=== PATIENT | female | born 1945 | race Caucasian/White ===

== ENCOUNTER 2019-12-07 10:02 | Observation (INO) | payer MEDICARE, OTHER ==
--- NOTE | 2019-11-27 12:16 | HP ---
HISTORY AND PHYSICAL: DATE OF ADMISSION/SURGERY: 12/07/19 DATE OF OFFICE VISIT: 11/20/19 SURGEON: Carin Davis MD.* (DICTATED BY JUNIOR JC) PROCEDURE: Right total knee arthroplasty. CHIEF COMPLAINT: Right knee pain. HISTORY OF PRESENT ILLNESS: Ms. Ag is a 74-year-old female with end-stage osteoarthritis of the right knee. She has failed conservative treatment and elected to proceed with a right total knee arthroplasty. PAST MEDICAL HISTORY: Hypothyroidism, hypertension, high cholesterol and breast cancer. PAST SURGICAL HISTORY: Cyst removal from her ovary, , cholecystectomy , hysterectomy and lower extremity vein surgery. CURRENT MEDICATIONS: 1. L-thyroxine 150 mcg daily. 2. Amlodipine/valsartan 10/160 mg daily. 3. Atorvastatin calcium 10 mg daily. 4. Duloxetine 30 mg a day. 5. Furosemide 20 mg daily as needed. ALLERGIES: To MINOCYCLINE. FAMILY HISTORY: Stroke and coronary artery disease. SOCIAL HISTORY: She is a 74-year-old female. She lives with her . She does not smoke or use drugs. REVIEW OF SYSTEMS: A complete 14-point review of systems was reviewed with the patient. It was positive for hypothyroidism. She denies history of DVT, PE, hepatitis, HIV or anesthesia problems. PHYSICAL EXAMINATION GENERAL: She is well developed, well nourished, in no acute distress. VITAL SIGNS: She stands 65 inches tall, weighs 238 pounds. Her blood pressure is 156/86, her heart rate is 64. HEENT: Normocephalic, atraumatic. NECK: Supple. No palpable lymph nodes. PULMONARY: The lungs are clear to auscultation bilaterally. CARDIO: Regular rate and rhythm. Strong S1, S2. ABDOMEN: Soft, nontender, nondistended. NEUROLOGICAL: She is alert and oriented x3. MUSCULOSKELETAL: Right lower extremity: The skin is intact. There are no open wounds or abrasions. She has a moderate effusion of the right knee joint. She has some tenderness along the medial and lateral joint line. Range of motion is 10 to 110 degrees of flexion with significant patellofemoral crepitus. She is able to dorsiflex and plantarflex and has a 2+ dorsalis pedis pulse and intact sensation. ASSESSMENT AND PLAN: Ms. Ag is a 74-year-old female with end-stage osteoarthritis of the right knee. She has failed conservative treatment and elected to proceed with a right total knee arthroplasty. The surgery is scheduled for 12/07/[address] Davis discussed the risks and benefits of the surgery at today's visit and all of her questions were answered. She will follow up with Dr. Davis 2 weeks after the surgery. JUNIOR JC [id number]/[facility] #: [id number] MTDRoxy
[~2019-12-07 10:02] MED LIST: Acetaminophen TAB* 325 MG PO ONE; Buffered Lidocaine 1% SYRIN* 1 ML/SYRINGE INTRADERM ONE; Bupivacaine 0.5% SDV PF* 30ML VIAL ONE; Dexamethasone TAB* 4 MG PO ONE; Famotidine IV* 10 MG/ML 2 ML (20 mg) IV ONE; Gabapentin CAP(*) 300 MG PO ONE; Lactated Ringers 1000 ML Bag* 1,000 ML IV SCH; Ondansetron ODT TAB* 4 MG PO ONE; Tranexamic Acid 1,000 MG in NS 0.9% 50 ML IV ONE; celeCOXIB CAP* 200 MG PO ONE
[2019-12-07] MEDS ORDERED: fentaNYL* 50 MCG/ML 2 ML VIAL (100 MCG VIAL) ONE ×2 (10:04→14:33)
[2019-12-07] MEDS ORDERED: Acetaminophen TAB* 325 MG ONE (10:53)
[2019-12-07] MEDS ORDERED: Gabapentin CAP(*) 300 MG ONE (10:53)
[2019-12-07] MEDS ORDERED: ceFAZolin 2 GM in NS PREMIX(*) 2 GM/100 ML BAG IVPB ONE (10:54)
[2019-12-07] MEDS ORDERED: celeCOXIB CAP* 200 MG ONE (10:54)
[2019-12-07] MEDS ORDERED: Naloxone* 0.4 MG/ML 1 ML VIAL IV PRN (11:40)
[2019-12-07] MEDS ORDERED: Bupivacaine 0.5% SDV PF* 30ML VIAL ONE (11:47)
[2019-12-07] MEDS ORDERED: Midazolam* 1 MG/ML 2 ML VIAL (2 MG) ONE ×2 (12:37→14:29)
[2019-12-07] MEDS ORDERED: Phenylephrine 40 MCG/ML SYRINGE ONE (12:44)
[2019-12-07] MEDS ORDERED: Ondansetron INJ* 2 MG/ML VIAL ONE (12:44)
[2019-12-07] MEDS ORDERED: EPHEDrine (Pressors)* 50 MG/ML VIAL ONE (12:44)
[2019-12-07] MEDS ORDERED: Dexamethasone IV* 4 MG/ML 1 ML (4 MG) ONE (12:44)
[2019-12-07] MEDS ORDERED: Propofol* 500 MG/50 ML BTL ONE (12:44)
[2019-12-07] MEDS ORDERED: Propofol* 10 MG/ML 20 ML BTL ONE ×2 (14:13→14:31)
[2019-12-07] MEDS ORDERED: oxyCODONE TAB* 5 MG TAB PO PRN ×2 (15:27)
[2019-12-07] MEDS ORDERED: HYDROmorphone INJ1* 1 MG/ML SYRINGE IV PRN (15:27)
[2019-12-07] MEDS ORDERED: diPHENhydraMINE PO* 25 MG PO PRN (15:27)
[2019-12-07] MEDS ORDERED: oxyCODONE/Acetamin 5/325 MG* TAB PO PRN (15:27)
[2019-12-07] MEDS ORDERED: Cyclobenzaprine TAB* 10 MG PO PRN (15:27)
[2019-12-07] MEDS ORDERED: Ondansetron ODT TAB* 4 MG PO PRN (15:27)
[2019-12-07] MEDS ORDERED: Acetaminophen TAB* 325 MG PO PRN (15:27)
[2019-12-07] MEDS ORDERED: diPHENhydraMINE IV* 50 MG/ML 1 ml VIAL (BENADRYL) IV PRN (15:27)
[2019-12-07] MEDS ORDERED: Magnesium Hydroxide LIQ* 30 ML UDC PO PRN (15:27)
[2019-12-07] MEDS ORDERED: Ondansetron INJ* 2 MG/ML VIAL IV PRN (15:27)
[2019-12-07] MEDS ORDERED: HYDROmorphone INJ1* 1 MG/ML SYRINGE ONE (15:33)
[2019-12-07] MEDS ORDERED: oxyCODONE TAB* 5 MG TAB ONE (16:07)
--- NOTE | 2019-12-07 16:20 | CONSULT ---
Subjective Date of Service: 12/07/19 Interval History: 74 y/o [place] [facility] [place] with significant past medical history of HTN, Hypothyroidism, and hyperlipidemia. Underwent Right TKA, uncomplicated operative course. We were asked for perioperative medical comanagement of her medical conditions as listed. Family History: Unchanged from Admission - CVA and CAD Social History: Unchanged from Admission - no Tobacco, No alcohol lives with her Past Medical History: Unchanged from Admission - 1. Hypertension; 2.Hypothyroidsm; 3. hyperlipidemia; 4. Breast Cancer Review of Systems - Measurements Intake and Output: Intake and Output Last 24 Hours 12/05/19 12/06/19 12/07/19 12/08/19 06:59 06:59 06:59 06:59 Weight 241 lb - Review of Systems General Comments: Right knee post op pain. no chest pain no Shortness of breath Objective Active Medications: Acetaminophen (Tylenol Tab*) 975 mg PO ONCE ONE Stop: 12/07/19 06:01 Last Admin: 12/07/19 10:57 Dose: 975 mg Acetaminophen (Tylenol Tab*) 975 mg PO ONCE ONE Stop: 12/07/19 06:01 Acetaminophen (Tylenol Tab*) 650 mg PO Q8HR PRN PRN Reason: MILD PAIN or TEMP > 100.4 Apixaban (Eliquis*) 2.5 mg PO BID ERIK Bisacodyl (Dulcolax Supp*) 10 mg GA DAILY PRN PRN Reason: CONSTIPATION Celecoxib (Celebrex Cap*) 200 mg PO ONCE ONE Stop: 12/07/19 06:01 Last Admin: 12/07/19 10:58 Dose: 200 mg Cyclobenzaprine HCl (Flexeril Tab*) 10 mg PO Q6H PRN PRN Reason: SPASMS Dexamethasone (Decadron Tab*) 8 mg PO ONCE ONE Stop: 12/07/19 06:01 Diphenhydramine HCl (Benadryl Iv*) 25 mg IV Q6H PRN PRN Reason: PRURITIS Diphenhydramine HCl (Benadryl Po*) 25 mg PO Q6H PRN PRN Reason: PRURITIS Docusate Sodium (Colace Cap*) 100 mg PO BID ERIK Famotidine (Pepcid Iv*) 20 mg IV ONCE ONE Stop: 12/07/19 06:01 Gabapentin (Neurontin Cap(*)) 300 mg PO ONCE ONE Stop: 12/07/19 06:01 Last Admin: 12/07/19 10:58 Dose: 300 mg Hydromorphone HCl (Dilaudid Inj1s*) 0.5 mg IV Q10M PRN PRN Reason: PAIN - SEVERE Last Admin: 12/07/19 15:33 Dose: 0.5 mg Lactated Ringer's (Lactated Ringers 1000 Ml Bag*) 1,000 mls @ 125 mls/hr IV PER RATE [facility] Last Admin: 12/07/19 11:10 Dose: 125 mls/hr Lactated Ringer's (Lactated Ringers 1000 Ml Bag*) 1,000 mls @ 125 mls/hr IV PER RATE [facility] Cefazolin Sodium 1 gm/ Sodium (Chloride) 50 mls @ 200 mls/hr IVPB Q8H [facility] Stop: 12/08/19 08:14 Lactated Ringer's (Lactated Ringers 1000 Ml Bag*) 1,000 mls @ 100 mls/hr IV PER RATE [facility] Lactulose (Lactulose*) 30 ml PO BID PRN PRN Reason: CONSTIPATION Lidocaine/Sodium Bicarbonate (Buffered Lidocaine 1% Syrin*) 0.2 ml INTRADERM ONCE ONE Stop: 12/06/19 10:28 Lidocaine/Sodium Bicarbonate (Buffered Lidocaine 1% Syrin*) 0.2 ml INTRADERM ONCE ONE Stop: 12/06/19 11:07 Magnesium Hydroxide (Milk Of Magnesia Liq*) 30 ml PO BID [facility] Magnesium Hydroxide (Milk Of Magnesia Liq*) 30 ml PO Q6H PRN PRN Reason: CONSTIPATION Multivitamins (Theragran Tab*) 1 tab PO DAILY [facility] Naloxone HCl (Narcan*) 0.08 mg IV Q2M PRN PRN Reason: severe induced resp depression Ondansetron HCl (Zofran Odt Tab*) 4 mg PO ONCE ONE Stop: 12/07/19 06:01 Ondansetron HCl (Zofran Inj*) 4 mg IV Q6H PRN PRN Reason: NAUSEA Ondansetron HCl (Zofran Odt Tab*) 4 mg PO Q6H PRN PRN Reason: NAUSEA Oxycodone HCl (Roxycodone Tab*) 10 mg PO ONCE PRN PRN Reason: SEVERE PAIN Last Admin: 12/07/19 16:08 Dose: 10 mg Oxycodone HCl (Roxycodone Tab*) 5 mg PO Q4H PRN PRN Reason: Pain - Breakthrough Oxycodone/Acetaminophen (Percocet 5/325 Tab*) 1 tab PO Q4H PRN PRN Reason: PAIN - MODERATE Oxycodone/Acetaminophen (Percocet 5/325 Tab*) 2 tab PO Q4H PRN PRN Reason: PAIN - SEVERE Vital Signs - 8 hr 12/07/19 12/07/19 11:05 15:33 Temperature 97.2 F Pulse Rate 76 Respiratory 20 14 Rate Blood Pressure 163/72 (mmHg) O2 Sat by Pulse 96 Oximetry Oxygen Devices in Use Now: None Appearance: awake, alert pleasant no acute distress Eyes: No Scleral Icterus, PERRLA, - - EOMI Ears/Nose/Mouth/Throat: NL Teeth, Lips, Gums, Mucous Membranes Moist Neck: NL Appearance and Movements; NL JVP, Trachea Midline Respiratory: Symmetrical Chest Expansion and Respiratory Effort, Clear to Auscultation Cardiovascular: NL Sounds; No Murmurs; No JVD, RRR Abdominal: NL Sounds; No Tenderness; No Distention Extremities: - - Right Lower extremety immobilized Neurological: Alert and Oriented x 3 Assessment/Plan - Billing Plan By Medical Problem: 74 y/o female post Right Total knee arthroplasty with known history for HTN, Hypothyroidism and hyperlipidemia being seen for comanagement for her medical conditions 1. Right knee osteoarthritits s/p Right total knee arthroplasty - Activity, diet and pain control as per ortho - PT/Ot as per ortho 2. Hypertension - start amlodipine 10 mg today with holding parameter - Hold valsartan for tonight. may resume in am or before she goes home 3. Hyperlipidemia - Resume lipitor in am 4. Hypothyroidism - Resume levothyroxine 150 mcg in am 5. DVT prophylaxis - Eliquis as per ortho Diet: - Cardiac Code Status: - Full code
[2019-12-07] MEDS: Lactated Ringers 1000 ML Bag* 1,000 ML IV SCH (17:09)
[2019-12-07] MEDS ORDERED: Furosemide TAB* 20 MG PO PRN (18:10)
[2019-12-07] MEDS ORDERED: traMADol TAB* 50 MG ONE (18:27)
[2019-12-07] MEDS: traMADol TAB* 50 MG PO PRN (18:29)
--- NOTE | 2019-12-07 20:41 | OP ---
Operative Report - Blank - Operative Report Date of Operation: 12/07/19 Note: JANETH ENCISO 1945 Date of Surgery: 12/07/19 Carin Davis MD Temple Marker: Joey PACHECO did help throughout the procedure with preparation of the knee, wound retraction, manipulation of the knee, and wound closure. Anesthesiologist: Dr. Paige Anesthesia Type: Spinal Preoperative Diagnosis: Right severe degenerative osteoarthritis of the knee Postoperative Diagnosis: As above Procedure Performed: Right Total Knee Arthroplasty Tourniquet time: 62 minutes Complications: None Specimen: Bone and cartilage from the right knee joint sent to pathology. Hardware Used: Cemented P[employer]hew total knee hardware was used - For the femur a size 6 right legion posterior stabilized femoral component, for the tibia a size 5 right jenny II tibial baseplate, for the insert a size 9mm 5-6 posterior stabilized articular polyethylene insert, and for the patella a size 32 3-peg all poly patella. The Navio robotic navigation system was used at the patient's request. Brief History/Indication: JANETH ENCISO was known in clinic and had a history of severe right knee pain and swelling. She failed conservative treatment with anti-inflammatories, pain pills, intra-articular injections and physical therapy. She elected to undergo right total knee arthroplasty due to continued pain and decreased quality of life. Radiographs showed severe end stage osteoarthritis of the knee with bone on bone contact. Informed consent was obtained from the patient. She understood the risks of surgery included but were not limited to: bleeding, infection, damage to nearby structures, intraoperative fracture, nerve palsy, failure of the hardware, early loosening, knee stiffness or loss of motion, anesthesia complications, stroke, heart attack , blood clot and . The additional Navio pin site risks of infection and fracture were discussed. She wished to proceed. Intra-Operative Findings: Intraoperatively the patient was noted to have severe loss of cartilage in all 3 compartments of the knee. Description of the Procedure: JANETH ENCISO was identified in the preanesthesia unit. Her right knee was marked as the correct operative side. Informed consent was signed and placed in the chart. The patient was taken to the operating room and placed under anesthesia without complication. A walters catheter was placed. A tourniquet was placed on the right thigh. The right lower extremity was prepped and draped in the usual sterile fashion. Preoperative time-out was made to correctly identify the patient, side and site. Appropriate intraoperative antibiotics were given within one hour of incision. Tourniquet was inflated. A midline incision was made and carried sharply down to the extensor mechanism. A new 10 blade was used to make a standard medial parapatellar arthrotomy. The patella was subluxed laterally. Electrocautery was used to dissect soft tissue off the superomedial tibia to the midsagittal plane. The knee was flexed up. The anterior horn of the lateral meniscus and the ACL/PCO were sharply incised. A checkpoint screw was placed on the femur and tibia. Two pins were placed in the femur and tibia, the arrays were connected to these. The navio system was used to map the patient's anatomy. The navio system was then used to determine the hardware sizes and cutting angles. The navio robotic soila was used to make the distal femoral cut. The distal femur was sized to a size 6. The size 6 multi-cutting jig was pinned on the distal femur. The oscillating saw was used to make the appropriate 4 chamfer cuts. Next the PCL was completely released. The extramedullary tibial cutting guide was pinned on the proximal tibia using the Navio angle guide. The oscillating saw was used to make the proximal tibial cut perpendicular to the mechanical axis of the tibia. The bone was carefully removed. The knee was brought out into full extension. The spacer block was placed and had excellent fit with the knee in full extension. The medial and lateral ligaments were well balanced. The flexion and extension gaps were well balanced. The knee was flexed up. Lamina dental laboratory technician apprentice was placed both medially and laterally. Any remaining meniscus was removed with electrocautery. Curved osteotome was used to remove any posterior osteophytes. The tibial tray and drop ld were placed and confirmed a satisfactory tibial cut. The size 6 right femoral trial was impacted onto the distal femur. This trial had excellent fit and stability. The box for the posterior stabilized implant was prepared using a box cut osteotome and a reamer. Next a tibial tray trial and 9 mm insert trial was placed. The knee was taken through a range of motion and had full extension to 130 degrees of flexion. Patellofemoral tracking was satisfactory. The final Navio measurements were collected. All 4 pins and 2 screws were carefully removed. The patella was inverted and sized to a size 32. Three peg holes were drilled through the size 32 drill guide. The trial patella was placed and the knee was taken through a range of motion. There was satisfactory patellofemoral tracking. All trials were removed. The tibia was subluxed anteriorly and sized to a size 5. The proximal tibial was prepared with a size 5 keel punch. All bony cut surfaces were irrigated with sterile saline and dried. Final implants were cemented into place starting with the tibia, followed by the femur, and last the patella. A 9 mm insert trial was placed and the knee was brought into full extension. Tourniquet was turned down and the knee was copiously irrigated with sterile saline. Electrocautery was used to obtain meticulous hemostasis. Once the cement had fully cured, the insert trial was removed. Any excess cement was removed from around the hardware and capsule. Final insert chosen was a 9 mm posterior stabilized Jenny II articular insert size 5-6. Stability of the insert was checked and noted to be stable. The extensor mechanism was closed using number 1 vicryls. The rest of the incision was closed in a layered fashion using 0 and 2-0 vicryls. The skin was closed using 3-0 nylon suture. Sterile xeroform, 4x4s and webril were used to cover the incision. Dayron wrap and cold pack were used to cover the dressings. The patients anesthesia was reversed without difficulty. She was taken to the PACU in stable condition. Intended weight-bearing will be as tolerated.
[2019-12-07] MEDS: Docusate CAP* 100 MG PO SCH (21:00)
[2019-12-07] MEDS: amLODIPine TAB* 5 MG PO SCH (21:01)
[2019-12-07] MEDS: oxyCODONE/Acetamin 5/325 MG* TAB PO PRN (21:02)
[2019-12-07] MEDS: Magnesium Hydroxide LIQ* 30 ML UDC PO SCH (21:03)
[2019-12-07] MEDS: ceFAZolin 1 GM ADVAN(*) 1 GM in NS 0.9% 50 ML* 50 ML IVPB SCH (21:03)
[2019-12-08] MEDS: Lactated Ringers 1000 ML Bag* 1,000 ML IV SCH (03:06)
[2019-12-08] MEDS: oxyCODONE/Acetamin 5/325 MG* TAB PO PRN ×3 (03:07→14:29)
[2019-12-08] MEDS: ceFAZolin 1 GM ADVAN(*) 1 GM in NS 0.9% 50 ML* 50 ML IVPB SCH ×2 (05:04→12:50)
[2019-12-08 05:32] LABS: Hematocrit 36 % (35-47); Hemoglobin 11.9 g/dL (12.0-16.0); Mean Platelet Volume 7.9 fL (7.4-10.4); Platelet Count 284 10^3/uL (150-450)
[2019-12-08 05:45] LABS: BUN/Creatinine Ratio 27.2 (8-20); Calcium 8.6 mg/dL (8.6-10.3); EGFR African American 83.4 (>60); EGFR Non-African American 68.9 (>60); Potassium 4.4 mmol/L (3.5-5.0)
[2019-12-08] MEDS ORDERED: Levothyroxine TAB* 150 MCG TAB PO SCH (06:00)
[2019-12-08] MEDS: traMADol TAB* 50 MG PO PRN (06:20)
[2019-12-08] MEDS ORDERED: DULoxetine DR CAP* 30 MG CAP.DR PO SCH (09:00)
[2019-12-08] MEDS ORDERED: Vitamin THERAPEUTIC TAB PO SCH (09:00)
[2019-12-08] MEDS ORDERED: Apixaban* 2.5 MG TAB PO SCH (09:00)
[2019-12-08] MEDS ORDERED: Atorvastatin* 10 MG TAB PO SCH (09:00)
[2019-12-08] MEDS: Docusate CAP* 100 MG PO SCH (09:26)
[2019-12-08] MEDS: amLODIPine TAB* 5 MG PO SCH (09:27)
[2019-12-08] MEDS: Magnesium Hydroxide LIQ* 30 ML UDC PO SCH (09:30)
[2019-12-08 12:41] VITALS: BP 130/52
--- NOTE | 2019-12-08 13:24 | PN ---
Progress Note - Progress Note Date of Service: 12/08/19 SOAP: Subjective: [Pt was seen this morning sitting up in bed. States that she is doing very well. She denies any numbness, tingling, nausea or vomiting. ] Objective: [General: Pt is alert and oriented x3, NAD. MSK, RLE: Dressing is c/d/i. + df/pf. NVI distally, calf is soft and non tender. 2+ DP pulse ] Vital Signs Temp 97.9 F 12/08/19 12:40 Pulse 73 12/08/19 12:40 Resp 16 12/08/19 12:40 BP 130/52 12/08/19 12:40 Pulse Ox 96 12/08/19 12:40 Intake & Output 12/07/19 12/08/19 12/08/19 18:59 06:59 18:59 Intake Total 3000 1804 1162 Output Total 650 1000 250 Balance 2350 804 912 Weight 241 lb Intake: IV Fluids 3000 950 1056 LR 3000 950 1056 IVPB 54 106 ABX - CEFAZOLIN 54 106 Oral 800 Output: Urine 250 Allred 650 1000 Assessment: [POD 1 RTKA ] Plan: [PT Continue with pain medication Eliquis 2.5 bid x 30 days Possible DC home today. ]
--- NOTE | 2019-12-08 13:26 | DS ---
Orthopedic Discharge Summary - Discharge Summary Date of Admission:12/07/19 Date of Discharge: 12/08/2019 Date of Surgery: 12/07/2019 Attending Orthopedic Provider: Dr. Davis Pre-operative Diagnosis: Right knee osteoarthritis Operative Procedure: Right total knee arthroplasty Disposition of Patient: Good Home care vs Outpatient services Condition of Patient: Good Pain medication RX at discharge: Percocet 5/325 DVT prophylaxis RX at discharge: Eliquis 2.5 mg bid History: JANETH ENCISO is a 74 year old F with years of increasingly severe right knee pain. Patient has failed conservative management and has elected to undergo a right total knee replacement Hospital Course: JANETH was admitted to [facility] on 12/07/19. Patient underwent a right total knee replacement without complication followed by a brief recovery in PACU and transfer to the Short Stay Surgical Unit in stable condition. Our hospitalist service, physical therapy and occupational therapy also participated in this patients care. Post-op day 1: patient was alert and in no acute distress. Dressing was clean, dry and intact. Operative extremity dorsiflexion and plantarflexion intact, sensation intact to light touch distally, DP2+. Dressing was changed, incision was clean, dry and intact. Patient was deemed to be medically and orthopedically stable for discharge. Physical therapy goals were met. Home Medications Medication Instructions Recorded Confirmed Type Amlodipine Besylate/Valsartan 1 tab PO QAM 11/20/19 12/07/19 History [Amlodipine Besylate/Valsa 10-160 mg-] Atorvastatin* [Lipitor*] 10 mg PO QAM 11/20/19 12/07/19 History Carboxymethylcellulose Sodium 1 drop BOTH EYES ONCE PRN 11/20/19 12/07/19 History [Refresh Tears] Cholecalciferol (Vitamin D3) 2,000 unit PO QAM 11/20/19 12/07/19 History [Vitamin D-3] DULoxetine CAP* [Cymbalta CAP*] 30 mg PO QAM 11/20/19 12/07/19 History Furosemide TAB* [Lasix TAB*] 20 mg PO DAILY PRN 11/20/19 12/07/19 History Ibuprofen TAB* [Advil TAB*] 200 mg PO QAM 11/20/19 12/07/19 History Levothyroxine TAB* [Synthroid TAB*] 150 mcg PO QAM 11/20/19 12/07/19 History Naproxen Sodium [Aleve] 1 tab PO QAM 11/20/19 12/07/19 History Wound care: * OK to shower on post-op day 3, no bathing, swimming, or submerging wound. * Use gentle soap, pat dry. Cover with gauze, FLOYD wrap or tape. * If you elected to have a visiting home nurse, they will perform wound checks. Call Orthopedic office for: * Increased drainage * Redness * Increased pain * Fever Go to ER with shortness of breath or chest pain. Diet: * Regular diet * Increase fluids and fiber to prevent constipation. * Continue to use stool softeners, call office if no bowel motion within 48 hours. Medications See Home Medication List in your packet for medications that you should take after discharge. DVT Prophylaxis: Eliquis Dosin.5 mg, 1 tab every 12 hours x 30 days Pain Control: Percocet 5/325 mg 1 tab for moderate pain and 2 tabs for severe pain by mouth every 4 hours as needed. Maximum of 10 tabs per day. Hold for sedation , wean off as soon as pain allows Please note that Percocet contains Tylenol (acetaminophen). Maximum daily dose of Tylenol is 4000 mg from all sources. Antibiotics are required prior to any dental work. FOLLOW UP: Follow up with Dr. Davis Within 10 - 14 days, call for appointment Please call our office with any questions or concerns ([phone])
== END 2019-12-08 17:15 | disposition home or self-care (01) ==
LOC: OR 10:02 → INTOOBSV 15:27 → SSU 15:27
PROVIDERS: ADMIT Orthopaedic Surgery Adult Reconstructive Orthopaedic Surgery; ATTEND Orthopaedic Surgery Adult Reconstructive Orthopaedic Surgery
DX: M17.11 Unilateral primary osteoarthritis, right knee (principal); E03.9 Hypothyroidism, unspecified; E78.00 Pure hypercholesterolemia, unspecified; I10 Essential (primary) hypertension; Z85.3 Personal history of malignant neoplasm of breast; Z79.899 Other long term (current) drug therapy; Z79.890 Hormone replacement therapy; Z88.1 Allergy status to other antibiotic agents
CPT/HCPCS: 36415; 80048; 85014; 85018; 85049; 86850; 86900; 86901; 96374; A9270-GY; G0378; J0690; J1100; J1170; J2250; J2405; J2704; J3010; J3490